=== PATIENT | male | born 1990 | race Caucasian/White ===

== ENCOUNTER 2022-05-29 19:40 | Emergency (ER) | payer SELFPAY ==
[2022-05-29 20:21] LABS: HEMOGLOBIN 13.4 g/dl (14.0-18.0); IMMATURE GRANULOCYTES 0.2 % (0.0-5.0); MEAN CELL VOLUME 86.8 fL CALC (80.0-100.0); MEAN CORPUSCULAR HGB 29.1 pG CALC (26.0-32.0); MEAN CORPUSCULAR HGB CONC 33.5 g/dL CAL (32.0-36.0); NEUT# 5.42 thou/uL (1.82-7.42); RED BLOOD COUNT 4.61 mill/uL (4.70-6.10); RED CELL DISTRI WIDTH 12.9 % (11.5-15.5)
[2022-05-29] MEDS ORDERED: KEFLEX500 MG PO (20:26)
[2022-05-29] MEDS ORDERED: BACTRIM DS1 TAB PO (20:26)
[2022-05-29] MEDS ORDERED: LORTAB 1010 MG PO (20:26)
[2022-05-29 20:29] VITALS: BP 148/100
[2022-05-29 20:38] LABS: ALBUMIN 4.9 g/dL (3.2-5.0); ALKALINE PHOSPHATASE 77 u/l (38-126); ANION GAP 14 (6-22 (CALC)); BILIRUBIN, TOTAL 0.5 mg/dL (0.0-1.4); BUN 15 mg/dL (9-20); BUN/CREATININE RATIO 12 (12-20 (CALC)); CARBON DIOXIDE 25 mmol/l (22-30); CHLORIDE 107 mmol/l (95-108); CREATININE 1.3 mg/dL (0.7-1.3); GFR FOR AFR.AMER. > 60 ML/MIN (>=60 (CALC)); GFR OTHER RACES > 60 ML/MIN (>=60 (CALC)); SGOT/AST 35 u/l (17-59); SODIUM 142 mmol/l (137-146); TOTAL PROTEIN 8.4 g/dL (6.3-8.2)
== END 2022-05-29 20:37 | disposition home or self-care (01) | DRG 605 ==
LOC: ED 19:40
PROVIDERS: Emergency Medicine
DX: S61.531A Puncture wound without foreign body of right wrist, initial encounter (principal); L03.113 Cellulitis of right upper limb; W45.0XXA Nail entering through skin, initial encounter